=== PATIENT | female | born 1995 | race Caucasian/White ===

== ENCOUNTER 2018-01-07 22:39 | Emergency (ER) | payer MEDICAID ==
[~2018-01-07] VITALS: Ht 160 cm; Wt 82.0 kg
[2018-01-08] MEDS ORDERED: ONDANSETRON HCL 4MG/2ML VIAL IV STA (02:17)
[2018-01-08] MEDS ORDERED: KETOROLAC 30MG/ML VIAL IV STA (02:17)
[2018-01-08 02:39] LABS: CLARITY URINE TURBID (CLEAR); COLOR URINE YELLOW (YELLOW); KETONES URINE NEGATIVE (NEGATIVE); LEUKOCYTE ESTERASE URINE 1+ (NEGATIVE); NITRITE URINE NEGATIVE (NEGATIVE); OCCULT BLOOD URINE NEGATIVE (NEGATIVE); PH URINE 7.5 (4.5-8.0); PROTEIN URINE TRACE (NEGATIVE); SPECIFIC GRAVITY URINE 1.029 (1.005-1.030); UROBILINOGEN URINE 0.2 E.U./dL (0.2-1.0)
[2018-01-08 02:40] LABS: BASOPHILS % 0.5 % (0.0-2.0); EOSINOPHILS % 1.4 % (0.0-5.0); HEMATOCRIT. 34.3 % (36.0-48.0); HEMOGLOBIN. 11.2 g/dL (12.0-16.0); MEAN CORPUSCULAR HEMOGLOBIN 22.7 pg (28.0-32.0); MEAN CORPUSCULAR VOLUME 69.6 fL (81.0-99.0); MEAN PLATELET VOLUME 8.9 fl (7.4-10.4); MONOCYTES % 6.4 % (2.0-8.0); NEUTROPHILS % 68.7 % (40.0-76.0); PLATELET 369 x1000/uL (130-400); RED BLOOD CELL COUNT 4.93 mill/uL (4.2-5.4); RED CELL DISTRIBUTION WIDTH 21.8 % (11.6-14.6)
[2018-01-08 02:45] LABS: CHLORIDE 107 mEq/L (98-107); HCG SCREEN NEGATIVE; INR 1.1; PROTHROMBIN TIME 11.1 sec (9.4-11.6)
[2018-01-08 05:00] VITALS: BP 96/52
[2018-01-08 05:04] LABS: PLATELET ESTIMATE NORMAL
== END 2018-01-08 05:12 | disposition home or self-care (01) ==
LOC: ER 23:01
DX: K80.20 Calculus of gallbladder without cholecystitis without obstruction (principal); K76.0 Fatty (change of) liver, not elsewhere classified; D64.9 Anemia, unspecified
CPT/HCPCS: 36415; 76705; 80053; 81003; 83690; 84703; 85025; 85610; 96374; 96375; 99285; J1885; J2405; Z7610

== ENCOUNTER 2022-11-18 20:38 | Inpatient (IN) | payer MEDICAID ==
[~2022-11-18] VITALS: Ht 152.4 cm; Wt 106.7 kg
[2022-11-18 21:53] LABS: BASOPHILS % 0.4 % (0.0-2.0); EOSINOPHILS % 2.8 % (0.0-5.0); LYMPHOCYTES % 29.1 % (20.0-50.0); MEAN CORPUSCULAR HEMOGLOBIN 19.1 pg (28.0-32.0); MEAN CORPUSCULAR VOLUME 62.8 fL (81.0-99.0); MEAN PLATELET VOLUME 7.5 fl (7.4-10.4); MONOCYTES % 4.5 % (2.0-8.0); NEUTROPHILS % 63.2 % (40.0-76.0); PLATELET 544 x1000/uL (130-400); RED CELL DISTRIBUTION WIDTH 20.8 % (11.6-14.6)
[2022-11-18 21:59] LABS: CHLORIDE 104 mEq/L (98-107)
[2022-11-18 22:01] LABS: HEMATOCRIT. 20.7 % (36.0-48.0); HEMOGLOBIN. 6.3 g/dL (12.0-16.0)
[2022-11-18 22:08] LABS: HCG SCREEN NEGATIVE
[2022-11-18 22:30] LABS: PLATELET ESTIMATE MARKEDLY INCREASED
[2022-11-18 23:58] LABS: CLARITY URINE CLEAR (CLEAR); COLOR URINE YELLOW (YELLOW); KETONES URINE TRACE (NEGATIVE); LEUKOCYTE ESTERASE URINE NEGATIVE (NEGATIVE); NITRITE URINE NEGATIVE (NEGATIVE); OCCULT BLOOD URINE TRACE (NEGATIVE); PROTEIN URINE NEGATIVE (NEGATIVE); SPECIFIC GRAVITY URINE 1.023 (1.005-1.030)
[2022-11-19 11:39] VITALS: BP 121/62
[2022-11-19 12:00] VITALS: BP 121/62
[2022-11-19] MEDS ORDERED: IPRATROPIUM/ALBUTEROL 0.5-3(2.5)MG/3ML NEB HHN PRN (12:15)
[2022-11-19] MEDS ORDERED: ONDANSETRON HCL 4MG/2ML INJ IV PRN (12:15)
[2022-11-19] MEDS ORDERED: CLONIDINE 0.1MG TABLET PO PRN (12:15)
[2022-11-19] MEDS ORDERED: ACETAMINOPHEN 325MG TABLET PO PRN ×2 (12:15)
[2022-11-19 16:00] VITALS: BP 111/65
[2022-11-19 19:00] LABS: HEMATOCRIT 23.3 % (36.0-48.0); HEMOGLOBIN 7.4 g/dL (12.0-16.0); MEAN CORPUSCULAR HEMOGLOBIN 21.2 pg (28.0-32.0); MEAN CORPUSCULAR VOLUME 66.4 fL (81.0-99.0); PLATELET 502 x1000/uL (130-400); RED BLOOD CELL COUNT 3.51 mill/uL (4.2-5.4)
[2022-11-19 20:00] VITALS: BP 112/66
[2022-11-19] MEDS ORDERED: SODIUM CHLORIDE 0.9% INJ 3ML FLUSH IVF SCH (22:00)
[2022-11-19 22:06] VITALS: BP 112/66
[2022-11-20] MEDS ORDERED: FERROUS SULFATE 325MG TABLET PO SCH (08:10)
== END 2022-11-19 23:03 | disposition short-term general hospital (02) | DRG 532 ==
LOC: ER 20:38 → 7WST 11-19 06:54
PROVIDERS: ADMIT Internal Medicine; ATTEND Internal Medicine
PROC: 30233N1 Transfusion of Nonautologous Red Blood Cells into Peripheral Vein, Percutaneous Approach (ICD-10-PCS; principal; 2022-11-19)
DX: N92.0 Excessive and frequent menstruation with regular cycle (principal); D50.9 Iron deficiency anemia, unspecified; R53.83 Other fatigue; Z20.822 Contact with and (suspected) exposure to COVID-19
CPT/HCPCS: 36415; 76830; 76856; 80053; 81003; 82962; 84703; 85025; 85027; 86850; 86900; 86920; 87426; 99291; C9803; P9016